=== PATIENT | female | born 1960 | race Two or more races ===

== ENCOUNTER 2017-01-30 14:12 | Inpatient (IN) | payer OTHER ==
[~2017-01-30] VITALS: Ht 149.9 cm; Wt 100.9 kg
[~2017-01-30 14:12] MED LIST: CLOP75TA52 PO; FLUO40CA9 PO; GLYB5TAB3 PO; LISI-410 PO; METF500T4 PO; TRAZ100T15 PO
--- NOTE | 2017-01-30 14:19 | PCM.EKG ---
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
[2017-01-30 14:35] LABS: BASOPHIL % 0.3 % (0.0-0.2); EOSINOPHIL # 0.3 10^3/uL (0.0-0.2); EOSINOPHIL % 2.1 % (0.0-5.0); LYMPHOCYTES # 2.8 10^3/uL (1.0-4.8); LYMPHOCYTES % 20.8 % (24.0-44.0); MEAN CELL HGB 27.3 pg (26-34); MEAN CELL HGB CONCENTRATION 31.5 g/dL (33-37); MEAN CORP VOLUME 86.8 fL (78-100); MONOCYTES # 0.8 10^3/uL (0.3-0.8); MONOCYTES % 5.8 % (5.0-12.0); NEUTROPHIL # 9.6 10^3/uL (1.8-7.7); NEUTROPHILS % 70.8 % (41.0-85.0); WHITE BLOOD CELL 13.5 10^3/uL (4.5-11.0)
--- NOTE | 2017-01-30 14:50 | DIREP ---
PROCEDURE:CHEST 1 VIEW COMPARISON:[facility], CR, XRAY CHEST SINGLE VW, 09/28/2015, 02:31 PM. INDICATIONS:Chest pain X 3 DAYS FINDINGS: LUNGS/PLEURA:No significant pulmonary parenchymal abnormalities. No effusions. VASCULATURE:Normal. Unremarkable pulmonary vasculature. CARDIAC:Normal. No cardiac silhouette abnormality or cardiomegaly. MEDIASTINUM:Atheromatous calcifications of the aortic arch BONES:Normal. No fracture or visible bony lesion. OTHER:Mild degenerative changes of the right shoulder CONCLUSION:No active cardiopulmonary disease process Dictated by: Cornelio Mooney M.D. on 01/30/2017 at 02:47 PM
[2017-01-30] MEDS ORDERED: ASPIRIN PO STA (15:07)
[2017-01-30 15:08] LABS: ALANINE AMINOTRANSFERASE 39 U/L (12-78); ALKALINE PHOSPHATASE 97 U/L (50-136); ASPARTATE AMINO TRANSFERASE 25 U/L (0-35); CALCIUM 8.7 mg/dL (8.4-10.5); CARBON DIOXIDE 23.9 mmol/L (20.0-32); GLUCOSE 318 mg/dL (70-110)
--- NOTE | 2017-01-30 15:09 | ER.PDOC ---
General Chief Complaint: Chest Pain-Cardiac Nature Stated Complaint: CHEST PAIN Time seen by MD: 15:08 Source: patient Exam Limitations: no limitations History of Present Illness Initial Comments Chest pain fro 3 days worse today Severity/Quality: moderate Radiation: no radiation Prior CP/Workup: Heart Attack Aspirin Today: 325 mg x 1 Associated Symptoms: shortness of breath Allergies: Coded Allergies: morphine (Verified Adverse Reaction, Unknown, 09/28/15) Home Meds Reported Medications Glyburide (GLYBURIDE) 5 Mg Tablet, 10 MG PO, TABLET 08/24/14 Metformin Hcl (METFORMIN HCL) 500 Mg Tablet, 1 TAB PO BID, #60 TAB 3 Refills 08/24/14 Past Medical History Medical History: cardiac problems, diabetes, hypertension Surgical History: stent, other LMP (females 10-50): postmenopause Social History Smoking: non-smoker Alcohol Use: none Drug Use: none Constitutional: no symptoms reported Respiratory: see HPI Cardiovascular: see HPI Gastrointestinal: no symptoms reported All Other Systems: Reviewed and Negative Physical Exam General Appearance: No Apparent Distress, WD/WN Neck: Non-Tender, Full Range of Motion, Supple, Normal Inspection Respiratory: chest non-tender, lungs clear, normal breath sounds, no respiratory distress, no accessory muscle use Cardiovascular: Normal Peripheral Pulses, Regular Rate, Rhythm, No Edema, No Gallop, No JVD, No Murmur Gastrointestinal: Normal Bowel Sounds, No Organomegaly, No Pulsatile Mass, Other (abdominal wall hernia) Extremities: Normal Range of Motion, Non-Tender, Normal Inspection, No Pedal Edema, No Calf Tenderness, Normal Capillary Refill Neurologic/Psychiatric: site physician II-XII NML as Tested, No Motor/Sensory Deficits, Alert, Normal Mood/Affect, Oriented x 3 Results/Orders Results/Orders Laboratory Tests Test 01/30/17 14:30 White Blood Count 13.5 10^3/uL (4.5-11.0) Red Blood Count 4.76 10^6/uL (4.00-5.20) Hemoglobin 13.0 g/dL (12.0-15.0) Hematocrit 41.3 % (36.0-46.0) Mean Corpuscular Volume 86.8 fL (78-100) Mean Corpuscular Hemoglobin 27.3 pg (26-34) Mean Corpuscular Hemoglobin Concent 31.5 g/dL (33-37) Red Cell Distribution Width 15.0 % (11.5-14.5) Platelet Count 200 10^3/uL (150-400) Mean Platelet Volume 11.0 fL (7.8-11.0) Neutrophils (%) (Auto) 70.8 % (41.0-85.0) Lymphocytes (%) (Auto) 20.8 % (24.0-44.0) Monocytes (%) (Auto) 5.8 % (5.0-12.0) Neutrophils # (Auto) 9.6 10^3/uL (1.8-7.7) Lymphocytes # (Auto) 2.8 10^3/uL (1.0-4.8) Monocytes # (Auto) 0.8 10^3/uL (0.3-0.8) Absolute Immature Granulocyte (auto 0.03 10^3 u/L (0-2) Eosinophils % 2.1 % (0.0-5.0) Basophils % 0.3 % (0.0-0.2) Basophils # 0.0 10^3/uL (0.0-0.1) Eosinophil Count 0.3 10^3/uL (0.0-0.2) Sodium Level Pending Potassium Level Pending Chloride Level Pending Carbon Dioxide Level Pending Anion Gap Pending Blood Urea Nitrogen Pending Creatinine Pending BUN/Creatinine Ratio Pending Glucose Level Pending Calcium Level Pending Total Bilirubin Pending Aspartate Amino Transf (AST/SGOT) Pending Alanine Aminotransferase (ALT/SGPT) Pending Alkaline Phosphatase Pending Total Creatine Kinase Pending Creatine Kinase MB Pending Troponin I < 0.02 ng/mL (0.00-0.05) Pro-B-Type Natriuretic Peptide Pending Total Protein Pending Albumin Pending Globulin Pending Percent Immature Gran (Cell Imm) 0.20 % (0.00-0.50) EKG/XRAY/CT/US EKG Comments: Normal XRAY: chest (Nothing acute) Departure Time of Disposition: 16:02 Disposition: 09 ADMITTED INPATIENT Impression: Primary Impression: Chest pain Condition: Stable Referrals: THOMAS VALLEJO (PCP) PRIMARY CARE PROVIDER Comments Admitted to Dr. Crowell Problem Qualifiers Primary Impression: Chest pain Chest pain type: unspecified Qualified Codes: R07.9 - Chest pain, unspecified REYNA MUNIZ MD Jan 30, 2017 15:09
[2017-01-30] MEDS ORDERED: ASPIRIN ONE (15:10)
[2017-01-30] MEDS: NITROSTAT SL PRN (15:14)
--- NOTE | 2017-01-30 15:15 | NUR ---
pain rates chest pain at 8/10 nitro administered per orders
[2017-01-30] MEDS ORDERED: DEMEROL IV STA (16:04)
--- NOTE | 2017-01-30 16:04 | PRM.ACF1 ---
Date and Time Date and Time Time: 16:03 Admission Criteria Forms CHEST PAIN: OBSERVATION CARE USE THIS FORM ONLY WHEN INPATIENT ADMISSION CRITERIA ARE NOT MET. (Place X for any and all applicable criteria): Placement for observation care may be appropriate for a patient with chest pain and ANY ONE of the following (1)(2)(3)(4)(5): [x]I. Suspected cardiac ischemia with nondiagnostic initial evaluation (eg, ECG, cardiac biomarkers) requiring further immediate evaluation such as stress testing and repeat laboratory testing to clarify diagnosis []II. Other suspected diagnosis requiring observation and monitoring during diagnostic evaluation (eg, pulmonary embolus, aortic dissection, pneumothorax, pericarditis, GI bleeding) (6)(7)(8)(9) []III. Other observation care needs (Use General Criteria: Observation Care) The original [facility] [employer] content created by [email or web address] has been revised. The portions of the content which have been revised are identified through the use of italic text, and [email or web address] has neither reviewed nor approved the modified material. All other unmodified content is copyright [email or web address]. Please see references footnoted in the original [facility] [employer] edition 2016 REYNA MUNIZ MD Jan 30, 2017 16:04
[2017-01-30] MEDS ORDERED: DEMEROL ONE (16:10)
[2017-01-30] MEDS ORDERED: HYDR-3194 PO (16:28)
--- NOTE | 2017-01-30 16:58 | NUR ---
NEW ORDERS PT C/O CHEST PAIN 11/05. DR CALDERON NOTIFIED. NEW ORDERS RECEIVED FOR GI COCKTAIL
[2017-01-30] MEDS ORDERED: LIDOCAINE VISCOUS MM STA (17:00)
[2017-01-30] MEDS ORDERED: MYLANTA PO STA (17:00)
[2017-01-30] MEDS ORDERED: DONNATAL ELIXIR PO STA (17:00)
[2017-01-30] MEDS ORDERED: GLIM1TAB2 PO (17:23)
[2017-01-30] MEDS ORDERED: FURO-81 PO (17:23)
[2017-01-30] MEDS ORDERED: METO-237 PO (17:23)
[2017-01-30] MEDS ORDERED: FLUO20CA19 PO (17:23)
[2017-01-30] MEDS ORDERED: ATOR20TA PO (17:23)
[2017-01-30] MEDS ORDERED: TRAM50TA PO (17:23)
[2017-01-30] MEDS ORDERED: AMLO5TAB2 PO (17:23)
[2017-01-30] MEDS ORDERED: CALC0.5C PO (17:23)
[2017-01-30] MEDS ORDERED: ALLO100T PO (17:23)
[2017-01-30] MEDS ORDERED: MIRT15TA PO (17:23)
[2017-01-30 17:32] VITALS: BP 134/85
--- NOTE | 2017-01-30 19:17 | PCM.EKG ---
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
--- NOTE | 2017-01-30 19:25 | NUR ---
REPORT REPORT RECEIVED FROM EMETERIO BRANTLEY ASSUMED CARE OF PT
--- NOTE | 2017-01-30 19:25 | NUR ---
REPORT REPORT GIVEN TO ONCOMING SHIFT AND CARE RELINQUISHED
[2017-01-30 20:16] VITALS: BP 121/76
[2017-01-30] MEDS ORDERED: LIPITOR PO SCH (21:00)
[2017-01-30] MEDS ORDERED: REMERON PO SCH (21:00)
[2017-01-30] MEDS ORDERED: DILAUDID IV ONE (21:30)
[2017-01-30] MEDS ORDERED: ULTRAM PO PRN (21:30)
[2017-01-30] MEDS: APRESOLINE PO SCH (21:47)
--- NOTE | 2017-01-30 23:33 | HPH ---
ADMIT DATE: 01/30/2017 The patient is being placed under observation to Medical-Surgical Nursing. PRIMARY CARE PHYSICIAN: Alysia ____ CHARANJIT Singletary ADMITTING DIAGNOSES: 1. Chest pain. 2. Abdominal pain with abdominal hernia. 3. Coronary artery disease. 4. Hypertension. 5. Diabetes. 6. Chronic kidney disease stage 4. CHIEF COMPLAINT: Chest pain. HISTORY OF PRESENT ILLNESS: The patient is a 56-year-old female who has been having substernal chest discomfort, radiating to her left back for the past 3 days. Today, it had gotten really worse and so she checked herself into the ER. No nausea, no vomiting reported. No diaphoresis reported. She states that when she moves around, she does have pain to that side. She also complained of some epigastric problems since she has a large abdominal hernia defect that [facility] has been treating. She sees Dr. Trotter, a surgeon in [place], and she stated that he was planning to get a specialist to come in to help her to fix her large abdominal defect. No fevers have been reported, no diarrhea, no syncope, and no lethargy. PAST MEDICAL HISTORY: Significant for coronary artery disease, hypertension, diabetes, chronic kidney disease stage 3B to 4. PAST SURGICAL HISTORY: She has had cholecystectomy, appendectomy, and a cardiac catheterization with stent placement about 5 to 6 years ago. She has had an abdominal hernia repair that was not successful. SOCIAL HISTORY: She has a history of drug abuse, but she has been clean. No alcohol and no smoking reported. MEDICATIONS: The medications that she is on include glyburide, metformin, amlodipine, allopurinol, aspirin, Lipitor, calcitriol, fluoxetine, Lasix, tramadol as needed. FAMILY HISTORY: The family history was asked and is noncontributory for this admission. PHYSICAL EXAMINATION: VITAL SIGNS: Temperature 98.2 degrees Fahrenheit, pulse rate 106 initially but it is down to 72, respirations 18, blood pressure 153/80 mmHg, and O2 saturation 99%. My physical exam is as follows: GENERAL: She is in no acute distress; awake and alert. HEENT: Oropharynx is clear. NECK: Supple. HEART: S1, S2 audible. No murmurs. PULMONARY: The lungs are clear bilaterally. ABDOMEN: Good bowel sounds, soft abdomen. She has a central abdominal wall defect with a protrusion noted. She has a healing wound in the central abdomen. EXTREMITIES: She did have some mild edema to her legs. 2+ distal pulses are noted. LABORATORY DATA: Labs were done, she had a white count of 13,500, hemoglobin of 13, and a platelet count of 200. Coagulation studies were normal. D-dimer was 0.78. Chemistry panel showed a BUN of 55, creatinine 2.75, and glucose 318. ProBNP was 2521. Troponin and CK enzymes were negative. IMAGING STUDIES: A chest x-ray was done that showed no infiltrates noted, no effusions noted. EKG was sinus rhythm. ASSESSMENT: We have this female patient with atypical chest pain with underlying coronary disease and renal disease. PLAN: I will go ahead and do some serial cardiac enzymes and give her cautious hydration overnight and see how she is by tomorrow. Funmilayo Crowell MD DR: LESVIA/narciso JOB# [id number]
[2017-01-30 23:46] VITALS: BP 118/66
--- NOTE | 2017-01-31 01:24 | NUR ---
STATUS 0155 PT CALLED DOWN TO DESK C/O OF CHEST PAIN STAT EKG ORDERED, NO NEW CHANGES TO EKG 0157 PT V/S 9/10 LEFT SIDED CHEST PAIN, O2 95%, HEART RATE 71, RESPIRATIONS 20 BP 151/78 0204 FIRST NITRO GIVEN 0208 V/S O2 SAT 93% HEART RATE 77 RESPIRATIONS 18 CHEST PAIN 7/10 B/P 127/75 0209 2ND NITRO GIVEN 0214 BP 129/75, RESPIRATIONS 20, O2 SAT 93%, CHEST PAIN 7/10, HEART RATE 80. 3RD NITRO GIVEN 0219 CHEST PAIN 7/10, O2 SAT 95%, HEART RATE 87, RESPIRATIONS 20, BP 135/92 PT STATED "CAN YOU JUST GIVE ME ANOTHER DILAUDID." DR CALDERON NOTIFIED OF PAIN AND STATEMENT MADE BY PATIENT. NEW ORDER RECEIVED FOR 1MG OF DILAUDID IV OT WILL CONT TO MONITOR. CALL LIGHT WITHIN REACH.
[2017-01-31] MEDS ORDERED: DILAUDID IV ONE ×2 (01:30→09:00)
[2017-01-31] MEDS: NITROSTAT SL PRN (01:58)
[2017-01-31] MEDS: ULTRAM PO PRN ×2 (01:58→08:17)
--- NOTE | 2017-01-31 02:00 | PCM.EKG ---
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
[2017-01-31 04:04] VITALS: BP 131/99
[2017-01-31 07:45] VITALS: BP 198/108
--- NOTE | 2017-01-31 07:59 | NUR ---
REFUSAL PT REFUSES GI COCKTAIL AT THIS TIME. DR CALDERON NOTIFIED. PT STATES SHE WILL TAKE TRAMADOL BUT TI DOES NOT WORK
[2017-01-31] MEDS: APRESOLINE PO SCH (08:22)
[2017-01-31] MEDS ORDERED: ZYLOPRIM PO SCH ×2 (09:00)
[2017-01-31] MEDS ORDERED: LASIX PO SCH ×2 (09:00)
[2017-01-31] MEDS ORDERED: APRESOLINE PO SCH (09:00)
[2017-01-31] MEDS ORDERED: ROCALTROL PO SCH ×2 (09:00)
[2017-01-31] MEDS ORDERED: PROZAC PO SCH ×2 (09:00)
[2017-01-31] MEDS ORDERED: AMARYL PO SCH ×2 (09:00)
[2017-01-31] MEDS ORDERED: NORVASC PO SCH ×2 (09:00)
[2017-01-31] MEDS ORDERED: ASPIRIN EC PO SCH (09:00)
[2017-01-31] MEDS ORDERED: TOPROL XL PO SCH ×2 (09:00)
--- NOTE | 2017-01-31 10:19 | DSH ---
DATE OF DISCHARGE: 01/31/2017 ADMITTING DIAGNOSES: Nonspecific chest pain with a history of coronary artery disease, hypertension, type 2 diabetes mellitus, and a history of substance abuse. DISCHARGE DIAGNOSES: Nonspecific chest pain with a large abdominal hernia, with a history of coronary artery disease, hypertension, and diabetes. HOSPITAL COURSE: The patient is a 56-year-old female who came in to the ER with substernal chest pain radiating to her left back for the past 3 days, that got worse upon presentation to the ER. She was given nitroglycerin that did not help the pain. EKG was normal. Cardiac enzymes were normal. SHE WAS ALLERGIC TO MORPHINE, so they gave her some Demerol that did relieve the pain. I do think that her pain is more of a musculoskeletal versus GI since she does have a large abdominal hernia, but I put her in the hospital. EKG is normal. Serial cardiac enzymes overnight have been negative. At this point, I instructed her that she needs to follow up with her digital librarian, Dr. Nguyen, in [place] this week, and to follow up with her surgeon, Dr. Trotter, for her large abdominal defect. I am sending her home today to continue her home medications and to stay on a 1600-ADA cardiac diet, and again, follow up with her specialist the next week. Funmilayo Crowell MD DR: LESVIA/narciso JOB# [id number]
[2017-01-31 10:30] VITALS: BP 198/108
--- NOTE | 2017-01-31 10:30 | NUR ---
DISCHARGE PT DISCHARGED AT THIS TIME. DENIES ANY QUESTIONS. AMBULATED OFF UNIT AT THIS TIME IN STABLE CONDITION
[2017-01-31] MEDS ORDERED: LIPITOR PO SCH (21:00)
[2017-01-31] MEDS ORDERED: REMERON PO SCH (21:00)
== END 2017-01-31 10:30 | disposition home or self-care (01) | DRG 394 ==
LOC: ER 14:12 → MS 16:03
PROVIDERS: ADMIT Pediatrics; ATTEND Pediatrics
DX: K46.9 Unspecified abdominal hernia without obstruction or gangrene (principal); N18.4 Chronic kidney disease, stage 4 (severe); E11.22 Type 2 diabetes mellitus with diabetic chronic kidney disease; R07.89 Other chest pain; I25.10 Atherosclerotic heart disease of native coronary artery without angina pectoris; I12.9 Hypertensive chronic kidney disease with stage 1 through stage 4 chronic kidney disease, or unspecified chronic kidney disease; I25.2 Old myocardial infarction; Z88.5 Allergy status to narcotic agent; Z90.49 Acquired absence of other specified parts of digestive tract; Z95.5 Presence of coronary angioplasty implant and graft; Z79.82 Long term (current) use of aspirin; Z79.899 Other long term (current) drug therapy
CPT/HCPCS: 36415; 71010; 80053; 82550; 82553; 82948; 83880; 84484; 85025; 85379; 85610; 93005; 99285; J1170; J2175; J3490